=== PATIENT | female | born 1990 | race Caucasian/White ===

== ENCOUNTER 2023-05-16 18:28 | Emergency (ER) | payer MEDICAID ==
[~2023-05-16] VITALS: Ht 160 cm; Wt 56.7 kg
[2023-05-16 18:49] VITALS: BP_SYST 106; PULSE 101; RESP 18; TEMP 98.3; O2SAT 99
[2023-05-16 19:19] LABS: BILIRUBIN,URINE NEGATIVE (NEGATIVE); CLARITY/URINE Slightly Cloudy (CLEAR); COLOR,URINE Light yellow (YELLOW); GLUCOSE,URINE NEGATIVE (NEGATIVE); KETONES,URINE NEGATIVE (NEGATIVE); LEUKOCYTE ESTERASE ,URINE 2+ (NEGATIVE); NITRITE, URINE NEGATIVE (NEGATIVE); PROTEIN URINE NEGATIVE (NEGATIVE); UROBILINOGEN,URINE 0.2 (0.2-1.0)
[2023-05-16 19:23] LABS: BLOOD, URINE TRACE (NEGATIVE)
[2023-05-16 19:26] LABS: BACTERIA,URINE FEW /HPF (None Seen); MUCUS,URINE 1+ /LPF (None Seen)
[2023-05-16] MEDS ORDERED: cefTRIAXone 1 GM VIAL IM ONE (19:30)
[2023-05-16] MEDS ORDERED: ACETAMINOPHEN 325 MG TABLET PO ONE (19:30)
[2023-05-16] MEDS ORDERED: ACET325T PO (21:11)
[2023-05-16] MEDS ORDERED: CEPH-548 PO (21:11)
[2023-05-16 21:15] VITALS: BP_SYST 106; PULSE 101; RESP 18; TEMP 98.3; O2SAT 99
== END 2023-05-16 21:15 | disposition home or self-care (01) ==
LOC: SED 18:28
DX: O23.41 Unspecified infection of urinary tract in pregnancy, first trimester (principal); N39.0 Urinary tract infection, site not specified; Z3A.08 8 weeks gestation of pregnancy; Z79.899 Other long term (current) drug therapy
CPT/HCPCS: 99285; 76801; 81000; 84702; 87086; 36415; 81025; 96372; 81003; J0696